=== PATIENT | male | born 1980 | race Caucasian/White ===

== ENCOUNTER 2017-03-23 17:37 | Emergency (ER) | payer OTHER ==
[~2017-03-23] VITALS: Ht 160 cm; Wt 78.0 kg
[2017-03-23 17:40] VITALS: Ht 160 cm; Wt 78.0 kg
[2017-03-23] MEDS ORDERED: AZIT250T94 PO (17:54)
[2017-03-23] MEDS ORDERED: TYL500 PO (17:54)
[2017-03-23] MEDS ORDERED: PROM5SYR2 PO (17:54)
--- NOTE | 2017-03-23 17:58 | ERD ---
ER Documentation Chief Complaint Date/Time DATE: 03/23/17 TIME: 17:57 Chief Complaint FEVER, COUGH,ST, BODY ACHES X 4 DAYS HPI This 28-year-old male presents with fever cough and body aches for last 4 days. He has mild productive sputum. He denies vomiting, abdominal pain, chest pain , urinary complaints, neck stiffness ROS All systems reviewed and are negative except as per history of present illness. Medications Home Meds Active Scripts Acetaminophen* (Tylenol*) 500 Mg Tab, 500 MG PO Q4H Y for MILD PAIN LEVEL 1-3, # 20 TAB Prov:BRY GREEN MD 03/23/17 Promethazine HCl/Codeine (Prometh-Codein 6.25-10 mg/5 ml) 5 Ml Syrup, 5 ML PO TID for 5 Days 4 OZ Prov:BRY GREEN MD 03/23/17 Azithromycin* (Zithromax*) 250 Mg Tablet, 250 MG PO .ZPACK DIRECTED, #6 TAB TAKE 500 MG (2 TABS) THE FIRST DAY THEN 250 MG (1 TAB) DAYS 2-5 Prov:BRY GREEN MD 03/23/17 Physical Exam Vitals Vital Signs Date Time Temp Pulse Resp B/P Pulse Ox O2 Delivery O2 Flow Rate FiO2 03/23/17 17:40 100.6 101 18 134/86 99 Physical Exam Const: [] Alert, [id number]. Head: Atraumatic Eyes: Normal Conjunctiva ENT: Normal External Ears, Nose and Mouth. Neck: Full range of motion..~ No meningismus. Resp: Clear to auscultation bilaterally. Coarse cough without rales appreciated. No retractions. Cardio: Regular rate and rhythm, no murmurs Abd: Soft, non tender, non distended. Normal bowel sounds Skin: No petechiae or rashes Back: No midline or flank tenderness Ext: No cyanosis, or edema Neur: Awake and alert Psych: Normal Mood and Affect Procedures/MDM Patient presents with URI symptoms and productive cough last 4 days and fever triage without evidence of hypoxemia or respiratory distress. Given Tylenol here in the ED will be treated with Zithromax, promethazine with codeine and Tylenol. The patient was stable with no new complaints during the ER course. Clinically, there is no current evidence to suggest meningitis, sepsis, acute abdomen, pneumonia, acute coronary syndrome, pulmonary embolism, or any other emergent condition appearing to require further evaluation or hospitalization. The patient should certainly return for any new or worsening symptoms per the aftercare instructions. They should otherwise follow-up with her primary care doctor for reevaluation this week. Departure Diagnosis: Primary Impression: Upper respiratory infection URI type: unspecified URI Qualified Code: J06.9 - Upper respiratory tract infection, unspecified type Condition: Stable Patient Instructions: Acute Bronchitis, Fever Control (Adult) Additional Instructions: Recheck for new or worsening symptoms or primary care doctor. BRY GREEN MD Mar 23, 2017 17:58
== END 2017-03-23 18:08 | disposition home or self-care (01) ==
LOC: FTE 17:37
DX: J06.9 Acute upper respiratory infection, unspecified (principal)
CPT/HCPCS: 99284

== ENCOUNTER 2017-07-19 08:07 | Emergency (ER) | payer OTHER ==
[~2017-07-19] VITALS: Ht 172.7 cm; Wt 84.0 kg
[~2017-07-19 08:07] MED LIST: AZIT250T94 PO; PROM5SYR2 PO; TYL500 PO
[2017-07-19 08:12] VITALS: Ht 172.7 cm; Wt 84.0 kg
--- NOTE | 2017-07-19 08:55 | ERD ---
ER Documentation Chief Complaint Date/Time DATE: 07/19/17 TIME: 08:54 Chief Complaint CAME IN VIA INTAKE DUE TO HEMORRHOID, HIGH BLOOD PRESSURE HPI Patient is a 36-year-old male who presents with bleeding hemorrhoids since last night. He reports going to the bathroom approximately every 20 minutes and passing a small amount of blood. He denies finding blood in his clothing. He reports feeling a hemorrhoid on his anus. He states that it is nontender. He denies history of prior GI bleed. He denies lightheadedness or shortness of breath. He is not on blood thinners. He reports having intermittent elevated blood pressure and is on antihypertensive medication. ROS All systems reviewed and are negative except as per history of present illness. Medications Home Meds Active Scripts Docusate Sodium* (Colace*) 100 Mg Capsule, 100 MG PO BID, #60 CAP Prov:JOSELITO FELICIANO MD 07/19/17 Hydrocortisone* Rectal (Preparation H* Cream) 1% - 26 Gm Cream.gm., 1 APPLIC IN BID for 7 Days, TUB Prov:JOSELITO FELICIANO MD 07/19/17 Acetaminophen* (Tylenol*) 500 Mg Tab, 500 MG PO Q4H Y for MILD PAIN LEVEL 1-3, # 20 TAB Prov:BRY GREEN MD 03/23/17 Promethazine HCl/Codeine (Prometh-Codein 6.25-10 mg/5 ml) 5 Ml Syrup, 5 ML PO TID for 5 Days 4 OZ Prov:BRY GREEN MD 03/23/17 Azithromycin* (Zithromax*) 250 Mg Tablet, 250 MG PO .ZPACK DIRECTED, #6 TAB TAKE 500 MG (2 TABS) THE FIRST DAY THEN 250 MG (1 TAB) DAYS 2-5 Prov:BRY GREEN MD 03/23/17 Allergies Allergies: Coded Allergies: No Known Allergy (Unverified , 07/19/17) PMhx/Soc Past medical history: Hypertension Past surgical history: Denies Social history: Denies tobacco, drinks occasional alcohol Hx Alcohol Use: No Hx Substance Use: No Hx Tobacco Use: No FmHx Noncontributory Physical Exam Vitals Vital Signs Date Time Temp Pulse Resp B/P Pulse Ox O2 Delivery O2 Flow Rate FiO2 07/19/17 10:25 99.1 66 18 146/95 96 Room Air 07/19/17 08:12 98.0 84 18 162/110 100 Physical Exam Const: Alert, no acute distress Head: Atraumatic Eyes: Normal Conjunctiva, No pallor, no icterus ENT: Normal External Ears, Nose and Mouth. Mucous membranes moist Neck: Full range of motion..~ No meningismus. Resp: Clear to auscultation bilaterally, No wheezes, no rales Cardio: Regular rate and rhythm, no murmurs Abd: Soft, non tender, non distended. Rectal: Extensive hemorrhoids with small amount of clot, no active bleeding. Slightly prolapsed internal hemorrhoids. Soft and reducible. Skin: No petechiae or rashes Back: No midline or flank tenderness Ext: No cyanosis, or edema Neur: Awake and alert Psych: Normal Mood and Affect Procedures/MDM MDM: Patient is a 36-year-old male with prolapsing hemorrhoids that are easily reducible and associated with rectal bleeding for the last 2 days. He does not have any signs of active bleeding, but does have small clots on reduction of hemorrhoids. He does not report large volume of rectal bleeding. He is not on anticoagulants. He is hemodynamically stable and does not have signs of anemia. I attempted to contact his primary physician, but was unable to, likely due to being a holiday. Patient was advised to call his PMD tomorrow to request referral to colorectal surgeon, and was advised on return precautions for shortness of breath, lightheadedness, large volume of blood, or difficulty arranging follow-up within the next 2-3 days. He was given a prescription for Colace and Preparation H, and was advised on sitz baths. Departure Diagnosis: Primary Impression: Prolapsed hemorrhoids Additional Impression: Rectal bleeding Condition: Stable JOSELITO FELICIANO MD Jul 19, 2017 08:55
[2017-07-19] MEDS ORDERED: HYDR26CR PR (10:18)
[2017-07-19] MEDS ORDERED: DOCU-144 PO (10:18)
[2017-07-19 10:25] VITALS: BP 146/95; PULSE 66; RESP 18; TEMP 99.1
== END 2017-07-19 11:44 | disposition home or self-care (01) ==
LOC: E/R 08:07
DX: K64.8 Other hemorrhoids (principal); R40.2142 Coma scale, eyes open, spontaneous, at arrival to emergency department; R40.2252 Coma scale, best verbal response, oriented, at arrival to emergency department; R40.2362 Coma scale, best motor response, obeys commands, at arrival to emergency department
CPT/HCPCS: 99284